=== PATIENT | female | born 1980 | race Caucasian/White ===

== ENCOUNTER 2021-12-29 03:07 | Emergency (ER) | payer OTHER, SELFPAY ==
[2021-12-29 03:35] VITALS: BP 130/70; PULSE 102; O2SAT 98; BMI 30.2
[2021-12-29 03:58] VITALS: BP 117/72; PULSE 73; RESP 18; TEMP 36.6; O2SAT 96
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
[2021-12-29 06:00] VITALS: BP 81/48; PULSE 64; O2SAT 95
[2021-12-29 07:11] LABS: Appearance Urine Clear; Color Urine Yellow; Glucose Urine UA Negative (Negative); Leukocyte Esterase Urine Large (3+) (Negative); Nitrite Urine Negative (Negative); Specific Gravity - Urine <= 1.005 (1.005-1.025); Urine Blood Large (3+) (Negative); Urine Ketones Negative (Negative); Urine Protein Negative (Neg-Trace)
[2021-12-29 07:19] LABS: UPreg QC Valid YES; Urine Pregnancy NEGATIVE (NEGATIVE)
[2021-12-29 07:27] LABS: Bacteria Urine None Seen (None Seen); Hyaline Casts Urine 0-2 /LPF (0-2); RBC Urine 0-2 /HPF (0-2); Squamous Epithelial Cell Urine 0-2 /HPF (0-2); UACC Culture Trigger YES; WBC Urine >50 /HPF (0-5)
[2021-12-29 07:45] VITALS: BP 94/54; PULSE 70; RESP 18; O2SAT 92
[2021-12-29 08:36] LABS: Amphetamine Screen Urine Not Detected (Not Detect); Barbiturates, Urine Not Detected (Not Detect); Benzodiazepines Screen Urine POSITIVE (Not Detect); Cannabinoid Screen Urine Not Detected (Not Detect); Cocaine Screen Urine Not Detected (Not Detect); Fentanyl, urine Not Detected (Not Detect); Opiate Screen Urine Not Detected (Not Detect); Phencyclidine Screen Urine Not Detected (Not Detect)
[2021-12-29 09:12] VITALS: BP 98/61; PULSE 64; RESP 15; TEMP 36.5; O2SAT 98
[2021-12-29] MEDS: metroNIDAZOLE 500 MG TABLET 2000 MG PO (09:18)
[2021-12-29] MEDS: Ondansetron ODT 4 MG TAB.RAPDIS TRANSLINGU (09:18)
--- NOTE | 2021-12-29 09:39 | PC.NURSE ---
manager environmental health vicente baker at bedside for questions for patient.
[2021-12-29 10:11] LABS: MANUAL DIFF FLAG NO
[2021-12-29 10:13] LABS: Basophils Percent Auto 0.6 % (0-2); Eosinophils Absolute Auto 0.3 X10*3/uL (0.0-0.4); Eosinophils Percent Auto 4.4 % (0-4); Hematocrit 40.4 % (37.0-47.0); Hemoglobin 13.7 g/dl (12.0-16.0); Imm Gran Abs Auto 0.02 X10*3/uL (0.00-0.03); Imm Gran Pct Auto 0.3 % (0.0-0.4); Lymphocytes Absolute Auto 3.2 X10*3/uL (1.2-4.9); Lymphocytes Percent Auto 45.4 % (20-40); Mean Corpuscular HGB Conc 33.9 g/dl (31.0-35.0); Mean Corpuscular Hemoglobin 29.3 pg (27.0-33.0); Mean Corpuscular Volume 86.5 fL (80.0-98.0); Mean Platelet Volume 8.9 fL (9.4-12.3); Monocytes Absolute Auto 0.5 X10*3/uL (0.1-1.2); Monocytes Percent Auto 7.2 % (2-11); Neutrophils Percent Auto 42.1 % (45-73); Platelet Count 336 X10*3/uL (160-400); Red Blood Count 4.67 X10*6/uL (4.20-5.50); Red Cell Distribution Width 13.3 % (11.0-16.0); White Blood Count 7.1 X10*3/uL (4.8-10.8)
[2021-12-29 10:30] LABS: COVID-19 Test Negative (Negative); IDNOW Serial# 16C4AD1C
[2021-12-29 10:33] LABS: Alanine Aminotransferase 31 U/L (0-31); Albumin Level 3.8 g/dL (3.5-5.0); Alkaline Phosphatase 99 U/L (39-117); Anion Gap 14 (12-20); Aspartate Amino Transferase 49 U/L (5-31); Bilirubin Total 0.3 mg/dL (0.0-1.0); Blood Urea Nitrogen 7 mg/dL (9-16); Calcium 8.4 mg/dL (8.4-10.2); Carbon Dioxide 26 mmol/L (22-29); Chloride 105 mmol/L (96-108); Creatinine Clr Calc Pharmacy 100.6; Estimated Glomerular Filt Rate > 60; Glucose Random 119 mg/dL (60-115); Potassium 3.9 mmol/L (3.3-5.1); Sodium 141 mmol/L (135-145); Total Protein 6.7 g/dL (6.5-8.0)
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
[2021-12-29] MEDS: cefTRIAXone sodium 500 MG VIAL IM (10:38)
[2021-12-29 10:54] LABS: HBS Num1 0.19 mIU/mL (0-7.99); HBc Num1 9.85 S/CO (0.00-0.79); HIV AB/AG Nonreactive (Nonreactive); HIV Num 1 0.05 S/CO (0.00-0.99); ~HepC Num1 11.53 S/CO (0.00-0.79); ~Hepatitis B Surface Antibody NONREACTIVE (Nonreactive)
--- NOTE | 2021-12-29 10:54 | PC.NURSE ---
@1032 AUGUSTO MEDEIROS TO CALL [facility] TRANSFER LINE AND I GIVE PATIENT DEMOGRAPHIC AND AUGUSTO PICKED UP RIGHT AWAY
[2021-12-29 10:56] LABS: Hepatitis C Ab Exposure Source Reactive (Nonreactive)
[2021-12-29 11:49] LABS: HBsAGNum2 Reactive; HBsAGNum3 Reactive; Hepatitis B Surface Antigen Retest CNFM (Negative)
[2021-12-29 11:55] LABS: Neutralization % 85
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
[2021-12-30 08:14] LABS: HBc Num2 9.79 S/CO; HBc Num3 9.26 S/CO
[2021-12-30 08:15] LABS: Hepatitis B Core Antibody Reactive (Nonreactive)
[2022-01-01 19:57] LABS: Hepatitis B Core Antibody IgM NON-REACTIVE (NON-REACTIVE)
== END 2021-12-29 11:20 | disposition short-term general hospital (02) ==
PROVIDERS: Emergency Provider Internal Medicine
DX: F33.1 Major depressive disorder, recurrent, moderate (principal); R45.851 Suicidal ideations; T76.21XA Adult sexual abuse, suspected, initial encounter; Z79.899 Other long term (current) drug therapy; Z20.822 Contact with and (suspected) exposure to COVID-19
CPT/HCPCS: 36415; 80053; 80307; 81001; 81025; 85025; 86705; 86803; 87086; 87088; 87147; 87186; 87635; 96372; 99285; J0696